=== PATIENT | male | born 1995 | race Caucasian/White ===

== ENCOUNTER 2019-01-07 13:57 | Emergency (ER) | payer SELFPAY ==
[~2019-01-07] VITALS: Ht 190.5 cm; Wt 129.3 kg
[2019-01-07 14:19] VITALS: BP 156/76
--- NOTE | 2019-01-07 14:29 | NUR ---
PT TAKEN TO X RAY VIA W/C, ACCOMPANIED BY BEHAVIORAL MODIFICATION ASSISTANT.
--- NOTE | 2019-01-07 15:07 | NUR ---
Patient to bed 2. RN evaluating patient at bedside.
--- NOTE | 2019-01-07 15:14 | NUR ---
23/M TO ED WITH RT FOOT PAIN X 2 DAYS S/P PLAYING FOOTBALL. PT REPORTS ANOTHER PLAYER STEPPED ON HIS FOOT. LIMITED ROM DUE TO PAIN. MILD SWELLING NOTED TO RT FOOT. PEDAL PULSES PRESENT AND EQUAL. NO DISTRESS NOTED. IN BED FOR EVAL.
[2019-01-07] MEDS ORDERED: IBUPROFEN 800 MG TAB PO ONE (15:25)
--- NOTE | 2019-01-07 15:52 | NUR ---
AIR SPLINT APPLIED TO R ANKLE. [facility] INTACT PRIOR TO SPLINT. [facility] INTACT POST SPLINT.
[2019-01-07 15:53] VITALS: BP 156/76
== END 2019-01-07 15:53 | disposition home or self-care (01) ==
LOC: MED 13:57
DX: M79.671 Pain in right foot (principal)
CPT/HCPCS: 73630; 99283

== ENCOUNTER 2021-12-23 13:56 | Emergency (ER) | payer BC, MEDICAID ==
[~2021-12-23] VITALS: Ht 182.9 cm; Wt 113.4 kg
[2021-12-23 14:06] VITALS: BP 147/78
--- NOTE | 2021-12-23 14:08 | NUR ---
PT C/O RIGHT FOOT PAIN X3 DAYS DENIES INJURY OR TRAUMA. HX OF GOAT STATES SIMILAR
[2021-12-23 14:39] LABS: BASOPHILS % (AUTO) 0.4 % (0.0-2.0); EOSINOPHILS # (AUTO) 0.2 K/uL (0-0.4); EOSINOPHILS % (AUTO) 2.1 % (0.0-4.0); HEMATOCRIT 38.9 % (36-52); HEMOGLOBIN 13.6 g/dL (12.0-18.0); LYMPHOCYTES % (AUTO) 13.8 % (20.5-51.1); MEAN CORPUSCULAR HEMOGLOBIN 30 pg (27-31); MEAN CORPUSCULAR HGB CONC 35 g/dL (33-37); MEAN CORPUSCULAR VOLUME 84.4 fL (80-94); MONOCYTES # (AUTO) 0.4 K/uL (0.8-1.0); MONOCYTES % (AUTO) 5.7 % (1.7-9.3); NEUTROPHILS # (AUTO) 5.5 K/uL (1.8-7.7); PLATELET COUNT (AUTO) 216 K/uL (140-450); RED BLOOD CELL COUNT(AUTO) 4.61 MIL/uL (4.20-6.10); RED CELL DISTRIBUTION WIDTH 12.7 % (11.6-13.7); WHITE BLOOD COUNT (AUTO) 7.1 K/uL (4.8-10.8)
[2021-12-23 14:47] LABS: ANION GAP 13.5 (8-16); CARBON DIOXIDE 24.8 mmol/L (21-32); CREATININE 1.5 mg/dL (0.6-1.3); POTASSIUM 4.3 mmol/L (3.5-5.1)
[2021-12-23] MEDS ORDERED: NACL 0.9% 1,000 ML IV ONE (15:10)
[2021-12-23 15:25] LABS: APPEARANCE,URINE CLEAR (CLEAR); BILIRUBIN,URINE NEGATIVE (NEGATIVE); BLOOD, URINE TRACE-I (NEGATIVE); COLOR,URINE YELLOW (YELLOW); LEUKOCYTE ESTERASE ,URINE NEGATIVE (NEGATIVE); NITRITE, URINE NEGATIVE (NEGATIVE); UGLUCOSE NEGATIVE (NEGATIVE)
[2021-12-23 15:37] LABS: OTHER CASTS, URINE None Seen /LPF (None Seen); RBC,URINE 0-5 /HPF (0-5); WBC,URINE 0-5 /HPF (0-5)
[2021-12-23] MEDS ORDERED: [UNRECOGNIZED DRUG - CODE] PO (15:40)
[2021-12-23 16:17] VITALS: BP 141/70
--- NOTE | 2021-12-23 16:18 | NUR ---
Patient discharged with v/s stable. Written and verbal after care instructions given and explained. Patient alert, oriented and verbalized understanding of instructions. Ambulatory with steady gait. All questions addressed prior to discharge. ID band removed. Patient advised to follow up with PMD. Rx of INDOMETHICIN given. Patient educated on indication of medication including possible reaction and side effects. Opportunity to ask questions provided and answered.
== END 2021-12-23 16:18 | disposition home or self-care (01) ==
LOC: MED 13:56
DX: E79.0 Hyperuricemia without signs of inflammatory arthritis and tophaceous disease (principal); R79.9 Abnormal finding of blood chemistry, unspecified; R79.82 Elevated C-reactive protein (CRP); E83.51 Hypocalcemia; M25.571 Pain in right ankle and joints of right foot; R03.0 Elevated blood-pressure reading, without diagnosis of hypertension; M19.071 Primary osteoarthritis, right ankle and foot; Z79.899 Other long term (current) drug therapy
CPT/HCPCS: 36415; 73610; 73630; 80048; 81001; 84550; 85025; 85651; 86140; 88304; 96360; 99283; J7030

== ENCOUNTER 2022-02-27 11:06 | Emergency (ER) | payer MEDICAID, OTHER ==
[~2022-02-27] VITALS: Ht 190.5 cm; Wt 151.7 kg
[~2022-02-27 11:06] MED LIST: [UNRECOGNIZED DRUG - CODE] PO
[2022-02-27 12:00] VITALS: BP 144/98
--- NOTE | 2022-02-27 12:05 | NUR ---
PT W/C ASSIST TO BED 5
[2022-02-27] MEDS ORDERED: HYDROcodone/APAP 7.5/325 MG 1 TAB PO ONE (12:20)
[2022-02-27] MEDS ORDERED: KETOROLAC 30 MG/ML VIAL IM ONE (12:20)
[2022-02-27] MEDS ORDERED: predniSONE 20 MG TAB PO ONE (12:25)
[2022-02-27] MEDS ORDERED: PRED20TA5 PO (13:08)
[2022-02-27] MEDS ORDERED: IBUP-2218 PO (13:08)
[2022-02-27] MEDS ORDERED: ACET-8905 PO (13:08)
[2022-02-27 13:36] VITALS: BP 148/85
--- NOTE | 2022-02-27 13:36 | NUR ---
Patient discharged with v/s stable. Written and verbal after care instructions FOR ACUTE KNEE PAINAND LOW PURINEEATING PLAN given and explained. Patient alert, oriented and verbalized understanding of instructions. Ambulatory with steady gait. All questions addressed prior to discharge. ID band removed. Patient advised to follow up with PMD. Rx of HYDROCODONE, IBUPROFEN, PREDNISONE given. Opportunity to ask questions provided and answered. WORK NOTE PROVIDED
--- NOTE | 2022-02-27 13:37 | NUR ---
The patient's care was reviewed and supervised by Sherine Snider RN.
== END 2022-02-27 13:36 | disposition home or self-care (01) ==
LOC: MED 11:06
DX: M25.562 Pain in left knee (principal); R03.0 Elevated blood-pressure reading, without diagnosis of hypertension; Z79.899 Other long term (current) drug therapy
CPT/HCPCS: 73562; 96372; 99283; J1885; J7512; Q0092